=== PATIENT | female | born 1960 | race Caucasian/White ===

== ENCOUNTER → 2016-05-16 | Outpatient (CLI) | payer OTHER ==
[~2016-05-16] MED LIST: ADVIN10/60 INH; ADVIN25/60 INH; ADVIN50050 INH; ALBU1AER9 INH; AMLO-114 PO; ASCORBIC ACID PO; BIOT1CAP8 PO; CALC-354 PO; CYAN100020 PO; GFNSR600 PO; LEVO500T19 PO; MULT-506 PO; PARO10TA3 PO; PARO1TAB27 PO; PRD20 PO; VITACAP26 PO; VITAMIN B12 PO; VITAMIN D PO; VNTHFA/IN INH; ZNTT/150 PO
[2016-05-16 09:07] LABS: ALT/SGPT 29 U/L (12-78); BLOOD UREA NITROGEN 15 mg/dl (7-18); BUN/CREATININE RATIO 24.1 (10-20); CALCIUM 9.4 mg/dl (8.5-10.1); CARBON DIOXIDE 29 mmol/L (21-32); CHLORIDE 106 mmol/L (98-107); CREATININE 0.63 mg/dl (0.60-1.20); GLUCOSE 79 mg/dl (70-99); POTASSIUM 3.8 mmol/L (3.5-5.1); SODIUM 144 mmol/L (136-145)
[2016-05-16 09:10] LABS: ALKALINE PHOSPHATASE 135 U/L (45-117); AST/SGOT 18 U/L (15-37)
[2016-05-19 21:32] LABS: ALK PHOS ISO-INTESTINE 0 % (1-24); ALK PHOS ISO-LIVER 65 % (25-69); ALK PHOS ISO-PLACENTAL 0 % (<=0); ALK PHOS MACROHEPATIC 0 % (<=0); ALP (ALK P'TASE) 103 U/L (33-130)
== END | disposition home or self-care (01) ==
LOC: C.LABBC 07:47
PROVIDERS: ATTEND Family Medicine
DX: R79.9 Abnormal finding of blood chemistry, unspecified (principal)

== ENCOUNTER 2016-06-19 15:06 | Inpatient (IN) | payer OTHER ==
[~2016-06-19] VITALS: Ht 147.3 cm; Wt 103.8 kg
[~2016-06-19 15:06] MED LIST changes: -ADVIN10/60 INH; -ADVIN25/60 INH; -CALC-354 PO; -CYAN100020 PO; -GFNSR600 PO; -LEVO500T19 PO; -PARO1TAB27 PO; -PRD20 PO; -VITACAP26 PO; -VNTHFA/IN INH
[2016-06-19] MEDS ORDERED: CYAN100020 PO (16:01)
[2016-06-19] MEDS ORDERED: VITACAP26 PO (16:01)
[2016-06-19] MEDS ORDERED: CALC-354 PO (16:01)
[2016-06-19] MEDS ORDERED: ADVIN25/60 INH (16:01)
[2016-06-19] MEDS ORDERED: ALBUT/IPRATROP 3MG/0.5MG NEB 3 ML VIAL INH STA (16:19)
--- NOTE | 2016-06-19 16:19 | EMERGENCY ROOM VISIT NOTE ---
History Report prepared by Dorie: Reina Narayanan Under the Supervision of: Dr. Gerardo Iqbal D.O. First contact with patient: 16:09 Chief Complaint: RESPIRATORY PROBLEMS Stated Complaint: OXYGEN LEVEL LOW, CHEST CONGESTION History of Present Illness The patient is a 55 year old female who presents to the Emergency Room with complaints of constant low oxygen levels beginning earlier today. The patient had an appointment with her PCP today and had an oxygen saturation level of 70% . She was referred to the ED for further testing. The patient has also been sick these past few days having flu like symptoms. Her symptoms include congestion, subjective fever, diaphoresis, cough with no sputum that causes chest pain. The patient denies swelling to her legs. Source of History: patient Onset: earlier today Position: other (global) Symptom Intensity: 70% Quality: other (low oxygen levels) Timing: constant Associated Symptoms: + chest pain, + cough, + diaphoresis, + fevers Review of Systems See HPI for pertinent positives & negatives. A total of 10 systems reviewed and were otherwise negative. Past Medical & Surgical Medical Problems: (1) Hypertension Family History Patient reports no known family medical history. Social History Smoking Status: Never Smoker Alcohol Use: none Marital Status: Housing Status: lives with family Occupation Status: employed Current/Historical Medications Scheduled Amlodipine (Norvasc), 10 MG PO QPM Biotin (Biotin), 1 MG PO QPM Calcium Carbonate-Cholecalcife (Caltrate 600+D), 1 TAB PO QPM Cyanocobalamin (Vitamin B12), Unknown Dose PO QPM Fluticasone Prop/Salmeterol (Advair Diskus 250/50 60 Dose), 1 PUFF INH BID Multivitamin (Multivitamin), 1 TAB PO QPM Paroxetine HCl (Paroxetine), 10 MG PO HS Ranitidine (Zantac), 150 MG PO QPM Vitamins C & E (Vitamin C), 1 CAP PO QPM Allergies Coded Allergies: NO KNOWN DRUG ALLERGIES (Verified Allergy, Mild, ., 06/19/16) Cat Dander (Verified Allergy, Unknown, itchy eyes,sneeze, 06/19/16) Physical Exam Vital Signs Date Time Temp Pulse Resp B/P Pulse Ox O2 Delivery O2 Flow Rate FiO2 06/19/16 19:05 91 20 141/103 88 Room Air 06/19/16 17:12 92 18 135/96 94 Nebulizer 6.0 2/24/17 17:12 94 Room Air 06/19/16 15:15 Nasal Cannula 2.0 06/19/16 15:12 86 Room Air 06/19/16 15:08 37.1 95 18 136/79 86 Room Air Physical Exam GENERAL: Patient is awake, alert, and in no acute distress. Patient is resting comfortably and showing no signs of anxiety EYES: The conjunctivae are clear. The pupils are round and reactive. EARS, NOSE, MOUTH AND THROAT: The nose is without any evidence of any deformity. Mucous membranes are moist tongue is midline NECK: The neck is nontender and supple. RESPIRATORY: Diminished breath sounds throughout with expiratory wheezing in the upper stein. Scattered rhonchi. CARDIOVASCULAR: Regular rate and rhythm noted there no murmurs rubs or gallops normal S1 normal S2 GASTROINTESTINAL: The abdomen is soft. Bowel sounds are present in all quadrants. Abdomen is nontender MUSCULOSKELETAL/EXTREMITIES: There is no evidence of gross deformity full range of motion is noted in the hips and shoulders SKIN: There is no obvious evidence of any rash. There are no petechiae, pallor or cyanosis noted. No calf tenderness. NEUROLOGIC: Patient is awake alert and oriented x3. Medical Decision & Procedures ER Provider Diagnostic Interpretation: Radiology results as stated below per my review and radiologist interpretation: CHEST ONE VIEW PORTABLE CLINICAL HISTORY: Sepsis HYPOXIA COMPARISON STUDY: May 29, 2015 FINDINGS: The cardiac and mediastinal contours are normal. There is no evidence of focal pulmonary consolidation. There is no evidence of failure. No pleural effusions are visualized.[ IMPRESSION: No active disease in the chest. Electronically signed by: Pepe More M.D. 06/19/2016 4:41 PM Dictated Date/Time: 06/19/2016 4:[address] ANGIOGRAPHY OF THE CHEST, PULMONARY EMBOLUS PROTOCOL CLINICAL HISTORY: Hypoxia. Chest congestion. COMPARISON STUDY: Chest radiograph May 29, 2015 and June 19, 2016. TECHNIQUE: Following IV administration of 91 mL of Optiray-320, helical axial images of the chest were obtained utilizing the pulmonary embolus protocol. Maximal intensity projections and sagittal and coronal reformats were viewed on an independent 3D workstation. IV contrast was administered without complication. CT DOSE: 695.84 mGy.cm FINDINGS: No pulmonary emboli are identified. There is mild dilatation of the ascending aorta which measures 4.2 cm at the level the main pulmonary artery. There is no thoracic aortic dissection. The heart is at the upper limits of normal. There are no enlarged thoracic lymph nodes. Central airways are patent with exception of occlusion of several segmental bronchi within the right middle lobe with volume loss. This could reflect mucus or debris. There is no central obstructing mass. There is partial right middle lobe atelectasis. There is mosaic attenuation within the lungs. A few small nodules measure up to 4 mm. These are likely benign. The bony thorax is unremarkable. 2.5 cm lesion within the spleen has increased in size since exam of August 15, 2014 but measures water attenuation and is statistically benign. The gallbladder is surgically absent. IMPRESSION: 1. No pulmonary emboli identified. 2. Mosaic attenuation within the lungs with mild groundglass opacities which favor air trapping. 3. Mild dilatation of the ascending aorta which measures 4.2 cm. No thoracic aortic dissection. 3. Partial right middle lobe atelectasis with suspected mucous within right middle lobe segmental bronchi. No central obstructing mass. A follow-up chest CT in 6 months is recommended. Electronically signed by: Yonatan Armenta M.D. 06/19/2016 7:03 PM Dictated Date/Time: 06/19/2016 6:50 PM Laboratory Results 06/19/16 16:46 Red Blood Count 5.16, Mean Corpuscular Volume 85.7, Mean Corpuscular Hemoglobin 28.1, Mean Corpuscular Hemoglobin Concent 32.8, Mean Platelet Volume 9.3, Neutrophils (%) (Auto) 62.3, Lymphocytes (%) (Auto) 28.2, Monocytes (%) (Auto) 7.6, Eosinophils (%) (Auto) 1.2, Basophils (%) (Auto) 0.5, Neutrophils # (Auto) 4.05, Lymphocytes # (Auto) 1.83, Monocytes # (Auto) 0.49, Eosinophils # (Auto) 0.08, Basophils # (Auto) 0.03 06/19/16 16:46 Test 06/19/16 16:40 06/19/16 16:46 06/19/16 16:54 06/19/16 17:10 Influenza Type A (RT-PCR) Neg for Influ A (NEG) Influenza Type A Antigen Neg for Influ A (NEG) Influenza Type B Antigen Neg for Influ B (NEG) Influenza Type B (RT-PCR) Neg for Influ B (NEG) White Blood Count 6.49 K/uL (4.8-10.8) Red Blood Count 5.16 M/uL (4.2-5.4) Hemoglobin 14.5 g/dL (12.0-16.0) Hematocrit 44.2 % (37-47) Mean Corpuscular Volume 85.7 fL (80-100) Mean Corpuscular Hemoglobin 28.1 pg (25-34) Mean Corpuscular Hemoglobin Concent 32.8 g/dl (32-36) Platelet Count 257 K/uL (130-400) Mean Platelet Volume 9.3 fL (7.4-10.4) Neutrophils (%) (Auto) 62.3 % Lymphocytes (%) (Auto) 28.2 % Monocytes (%) (Auto) 7.6 % Eosinophils (%) (Auto) 1.2 % Basophils (%) (Auto) 0.5 % Neutrophils # (Auto) 4.05 K/uL (1.4-6.5) Lymphocytes # (Auto) 1.83 K/uL (1.2-3.4) Monocytes # (Auto) 0.49 K/uL (0.11-0.59) Eosinophils # (Auto) 0.08 K/uL (0-0.5) Basophils # (Auto) 0.03 K/uL (0-0.2) RDW Standard Deviation 46.9 fL (36.4-46.3) RDW Coefficient of Variation 14.8 % (11.5-14.5) Immature Granulocyte % (Auto) 0.2 % Immature Granulocyte # (Auto) 0.01 K/uL (0.00-0.02) Prothrombin Time 10.7 SECONDS (9.0-12.0) Prothromb Time International Ratio 1.0 (0.9-1.1) Activated Partial Thromboplast Time 27.1 SECONDS (21.0-31.0) Partial Thromboplastin Ratio 1.0 Venous Blood pH 7.41 (7.36-7.41) Venous Blood Partial Pressure CO2 53 mmHg (38.0-50.0) Venous Blood Partial Pressure O2 30 mmHg Venous Blood HCO3 33 mmol/L Venous Blood Oxygen Saturation 61.3 % Venous Blood Base Excess 6.3 mmol/L Anion Gap 7.0 mmol/L (3-11) Est Creatinine Clear Calc Drug Dose 96.8 ml/min Estimated GFR () 113.1 Estimated GFR (Non- 97.6 BUN/Creatinine Ratio 19.7 (10-20) Calcium Level 9.4 mg/dl (8.5-10.1) Phosphorus Level 3.0 mg/dl (2.5-4.9) Magnesium Level 2.2 mg/dl (1.8-2.4) Total Bilirubin 0.3 mg/dl (0.2-1) Aspartate Amino Transf (AST/SGOT) 22 U/L (15-37) Alanine Aminotransferase (ALT/SGPT) 30 U/L (12-78) Alkaline Phosphatase 136 U/L (45-117) Total Creatine Kinase 65 U/L (26-192) Creatine Kinase MB 1.4 ng/ml (0.5-3.6) Creatine Kinase MB Ratio 2.2 (0-3.0) Troponin I < 0.015 ng/ml (0-0.045) C-Reactive Protein 1.95 mg/dl (0-0.29) Pro-B-Type Natriuretic Peptide 63 pg/ml (0-900) Total Protein 7.6 gm/dl (6.4-8.2) Albumin 3.6 gm/dl (3.4-5.0) Globulin 4.0 gm/dl (2.5-4.0) Albumin/Globulin Ratio 0.9 (0.9-2) Lipase 169 U/L (73-393) Bedside Lactic Acid Venous 0.78 mmol/L (0.90-1.70) Urine Color DK YELLOW Urine Appearance CLOUDY (CLEAR) Urine pH 5.5 (4.5-7.5) Urine Specific Sneads 1.022 (1.000-1.030) Urine Protein TRACE (NEG) Urine Glucose (UA) NEG (NEG) Urine Ketones TRACE (NEG) Urine Occult Blood 3+ (NEG) Urine Nitrite NEG (NEG) Urine Bilirubin NEG (NEG) Urine Urobilinogen NEG (NEG) Urine Leukocyte Esterase SMALL (NEG) Urine WBC (Auto) 5-10 /hpf (0-5) Urine RBC (Auto) 10-30 /hpf (0-4) Urine Hyaline Casts (Auto) 10-30 /lpf (0-5) Urine Epithelial Cells (Auto) >30 /lpf (0-5) Urine Bacteria (Auto) NEG (NEG) Urine Renal Epithelial Cells 0-5 /lpf (0-5) Urine Yeast (Auto) PRESENT (NONE PRSENT) Laboratory results per my review. Medications Administered Medications (Trade) Dose Ordered Sig/Jason Route Start Time Stop Time Status Last Admin Dose Admin Albuterol/ Ipratropium (Duoneb) 3 ml NOW STAT INH 06/19/16 16:19 06/19/16 16:20 DC 06/19/16 17:19 3 ML Levofloxacin (Levaquin / D5W) 750 mg NOW STAT IV 06/19/16 19:13 06/19/16 19:15 DC 06/19/16 20:17 750 MG Methylprednisolone Sodium Succinate (Solu-Medrol IV) 125 mg NOW STAT IV 06/19/16 19:13 06/19/16 19:15 DC 06/19/16 20:17 125 MG ECG Indication: other (low oxygen levels) Rate (beats per minute): 80 Rhythm: normal sinus Findings: nonspecific-ST abn, no ectopy ED Course 161: The patient was evaluated in room C5. A complete history and physical examination were performed. 1618: Duoneb 3 ml INH. 1912: Solu-Medrol IV 125 mg IV, Levaquin/ D5W 750 mg IV. 1919: I discussed the patient's case with Dr. Oneida Stapleton [facility]. The patient will be evaluated for further management. Medical Decision Differential diagnosis: Etiologies such as infections, reactive airway disease, pneumonia, pneumothorax , COPD, CHF, cardiac ischemia, pulmonary embolism, musculoskeletal, gastrointestinal, as well as others were entertained. Nursing notes reviewed. The patient is a 55-year-old female who presented to the emergency department for an evaluation of shortness of breath. The patient is been having trouble with breathing and cough. She was found have significant hypoxia by outpatient primary care physician. She was sent to the emergency apartment for further evaluation. Initially I thought the patient's condition was consistent with an infectious process however her chest x-ray did not show any acute abnormality. Because of the degree of hypoxia CT the chest was ordered to rule out pulmonary embolism. I discussed patient's laboratory and radiographic studies with her. She was treated with DuoNeb therapy IV antibiotics as well as IV steroids. She was also placed on supplemental oxygen and was found have an acceptable oxygen saturation. She still had significant dyspnea on exertion. I discussed her case with the on-call [facility] hospitalist group. They've agreed to evaluate the patient in the emergency department for further management and disposition. I discussed the patient's laboratory and radiographic studies with her. Consults Time Called: 1917 Consulting Physician: Dr. Oneida NIETO Returned Call: 1919 I discussed the patient's case with Dr. Oneida NIETO. The patient will be evaluated for further management. Impression Primary Impression: Acute bronchitis Additional Impressions: Hypoxia Shortness of breath Scribe Attestation The scribe's documentation has been prepared under my direction and personally reviewed by me in its entirety. I confirm that the note above accurately reflects all work, treatment, procedures, and medical decision making performed by me. Departure Information Dispostion Being Evaluated By Hospitalist Referrals Estiven Hsieh, D.O.Int.Med. (PCP) Problem Qualifiers Primary Impression: Acute bronchitis Bronchitis organism: unspecified organism Qualified Codes: J20.9 - Acute bronchitis, unspecified
--- NOTE | 2016-06-19 16:43 | DIAGNOSTIC IMAGING REPORT ---
CHEST ONE VIEW PORTABLE CLINICAL HISTORY: Sepsis HYPOXIA COMPARISON STUDY: May 29, 2015 FINDINGS: The cardiac and mediastinal contours are normal. There is no evidence of focal pulmonary consolidation. There is no evidence of failure. No pleural effusions are visualized.[ IMPRESSION: No active disease in the chest. Electronically signed by: Pepe More M.D. 06/19/2016 4:41 PM Dictated Date/Time: 06/19/2016 4:41 PM
[2016-06-19 16:59] LABS: VEN BLD GAS O2 SATURATION 61.3 %; VEN BLOOD GAS BASE EXCESS 6.3 mmol/L
[2016-06-19 17:01] LABS: BASO % 0.5 %; BASO ABS # 0.03 K/uL (0-0.2); COMPLETE YES; EOS % 1.2 %; HEMATOCRIT 44.2 % (37-47); IG% 0.2 %; LYMPH % 28.2 %; LYMPH ABS # 1.83 K/uL (1.2-3.4); MEAN CELL VOLUME 85.7 fL (80-100); MEAN CORPUSCULAR HEMOGLOBIN 28.1 pg (25-34); MEAN CORPUSCULAR HGB CONC 32.8 g/dl (32-36); MEAN PLATELET VOLUME 9.3 fL (7.4-10.4); MONO % 7.6 %; NEUT % 62.3 %; PLATELET COUNT 257 K/uL (130-400); RED BLOOD COUNT 5.16 M/uL (4.2-5.4); WHITE BLOOD COUNT 6.49 K/uL (4.8-10.8)
[2016-06-19 17:09] LABS: PROTHROMBIN TIME (PATIENT) 10.7 SECONDS (9.0-12.0)
[2016-06-19 17:22] LABS: ALT/SGPT 30 U/L (12-78); BLOOD UREA NITROGEN 13 mg/dl (7-18); BUN/CREATININE RATIO 19.7 (10-20); C-REACTIVE PROTEIN 1.95 mg/dl (0-0.29); CALCIUM 9.4 mg/dl (8.5-10.1); CARBON DIOXIDE 30 mmol/L (21-32); CHLORIDE 101 mmol/L (98-107); CREATININE 0.67 mg/dl (0.60-1.20); GLUCOSE 85 mg/dl (70-99); MAGNESIUM 2.2 mg/dl (1.8-2.4); POTASSIUM 3.7 mmol/L (3.5-5.1); SODIUM 138 mmol/L (136-145)
[2016-06-19 17:25] LABS: ALB/GLOB RATIO 0.9 (0.9-2); ALKALINE PHOSPHATASE 136 U/L (45-117); AST/SGOT 22 U/L (15-37); CKMB/CK RATIO 2.2 (0-3.0)
[2016-06-19 17:29] LABS: URINE APPEARANCE CLOUDY (CLEAR); URINE BILIRUBIN NEG (NEG); URINE COLOR DK YELLOW; URINE EPITHELIAL CELL AUTO >30 /lpf (0-5); URINE NITRITE NEG (NEG); URINE PH 5.5 (4.5-7.5); URINE SPECIFIC GRAVITY 1.022 (1.000-1.030); UROBILINOGEN NEG (NEG); ZZUR CULT IF INDIC CLEAN CATCH YES
[2016-06-19 17:37] LABS: MANUAL MICROSCOPIC REQUIRED? NO; REVIEW REQ? YES
[2016-06-19] MEDS ORDERED: OPTIRAY 320 IV PRN (17:45)
[2016-06-19 18:56] LABS: INFLUENZA A PCR Neg for Influ A (NEG); INFLUENZA B PCR Neg for Influ B (NEG)
--- NOTE | 2016-06-19 19:04 | DIAGNOSTIC IMAGING REPORT ---
CT ANGIOGRAPHY OF THE CHEST, PULMONARY EMBOLUS PROTOCOL CLINICAL HISTORY: Hypoxia. Chest congestion. COMPARISON STUDY: Chest radiograph May 29, 2015 and June 19, 2016. TECHNIQUE: Following IV administration of 91 mL of Optiray-320, helical axial images of the chest were obtained utilizing the pulmonary embolus protocol. Maximal intensity projections and sagittal and coronal reformats were viewed on an independent 3D workstation. IV contrast was administered without complication. CT DOSE: 695.84 mGy.cm FINDINGS: No pulmonary emboli are identified. There is mild dilatation of the ascending aorta which measures 4.2 cm at the level the main pulmonary artery. There is no thoracic aortic dissection. The heart is at the upper limits of normal. There are no enlarged thoracic lymph nodes. Central airways are patent with exception of occlusion of several segmental bronchi within the right middle lobe with volume loss. This could reflect mucus or debris. There is no central obstructing mass. There is partial right middle lobe atelectasis. There is mosaic attenuation within the lungs. A few small nodules measure up to 4 mm. These are likely benign. The bony thorax is unremarkable. 2.5 cm lesion within the spleen has increased in size since exam of August 15, 2014 but measures water attenuation and is statistically benign. The gallbladder is surgically absent. IMPRESSION: 1. No pulmonary emboli identified. 2. Mosaic attenuation within the lungs with mild groundglass opacities which favor air trapping. 3. Mild dilatation of the ascending aorta which measures 4.2 cm. No thoracic aortic dissection. 3. Partial right middle lobe atelectasis with suspected mucous within right middle lobe segmental bronchi. No central obstructing mass. A follow-up chest CT in 6 months is recommended. Electronically signed by: Yonatan Armenta M.D. 06/19/2016 7:03 PM Dictated Date/Time: 06/19/2016 6:50 PM
[2016-06-19] MEDS ORDERED: METHYLPREDNISOLONE 125 MG VIAL IV STA (19:13)
[2016-06-19] MEDS ORDERED: LEVAQUIN 750MG / 150ML D5W IV STA (19:13)
[2016-06-19] MEDS ORDERED: PROMETHAZINE HCL INJ 12.5 MG in SODIUM CHLORIDE 0.9% 50ML 50 ML IV PRN (19:45)
[2016-06-19] MEDS ORDERED: ZOLPIDEM TARTRATE 5 MG TAB PO PRN ×2 (19:45)
[2016-06-19] MEDS ORDERED: ACETAMINOPHEN 325 MG TAB PO PRN ×2 (19:45)
[2016-06-19] MEDS ORDERED: LORAZEPAM 2 MG/ML 1 ML VIAL IV PRN (19:45)
[2016-06-19] MEDS ORDERED: MAGNESIUM HYDROXIDE SUSP 30 ML UDC PO PRN (19:45)
[2016-06-19] MEDS ORDERED: ALUMINUM/MAGNESIUM/SIMETH (MAALOX MAX) 30 ML UDC PO PRN (19:45)
[2016-06-19] MEDS ORDERED: ONDANSETRON INJ 2 MG/ML 2 ML VIAL IV PRN (19:45)
[2016-06-19] MEDS ORDERED: MoRPHine SULFATE 2 MG/ML CARP IV PRN (19:45)
[2016-06-19] MEDS ORDERED: DiphenhydrAMINE HCL 50 MG/ML VIAL IV PRN (19:45)
[2016-06-19 20:38] VITALS: BP 148/87; PULSE 107; TEMP 36.6; O2SAT 92; Ht 147.3 cm; Wt 103.8 kg
[2016-06-19] MEDS: LEVALBUTEROL 1.25MG/0.5ML NEB INH SCH (21:00)
[2016-06-19] MEDS ORDERED: IPRATROPIUM BROMIDE NEB SOLN 0.02% 2.5 ML VIAL INH PRN (21:00)
[2016-06-19] MEDS ORDERED: LEVALBUTEROL/IPRATROPIUM NEB INH SCH (21:00)
[2016-06-19] MEDS ORDERED: NON-FORMULARY MEDICATION (Biotin 1 MG) PO SCH (21:00)
[2016-06-19] MEDS ORDERED: LEVALBUTEROL 1.25MG/0.5ML NEB INH PRN (21:00)
[2016-06-19] MEDS: IPRATROPIUM BROMIDE NEB SOLN 0.02% 2.5 ML VIAL INH SCH (21:00)
[2016-06-19] MEDS: CALCIUM 600MG + VIT D 400 IU TAB PO SCH (21:48)
[2016-06-19] MEDS: AMLODIPINE BESYLATE 5 MG TAB PO SCH (21:48)
[2016-06-19] MEDS: MULTIVITAMIN TAB PO SCH (21:48)
[2016-06-19] MEDS: RANITIDINE HCL 150 MG TAB PO SCH (21:48)
[2016-06-19] MEDS: GUAIFENESIN 600 MG TABCR PO SCH (21:49)
[2016-06-19] MEDS: CEFTRIAXONE SOD INJ 1 GM in DEXTROSE 5% ADD-VANTAGE 50ML 50 ML IV SCH (22:24)
[2016-06-20] VITALS (11 sets, daily range): BP systolic 111–152; BP diastolic 69–82; PULSE 76–95; TEMP 36.6–36.9; O2SAT 90–95
[2016-06-20] MEDS: METHYLPREDNISOLONE IV 60 MG in SYRINGE 0 ML IV SCH ×4 (01:49→20:26)
[2016-06-20] MEDS: LEVALBUTEROL 1.25MG/0.5ML NEB INH SCH ×4 (01:55→19:22)
[2016-06-20] MEDS: IPRATROPIUM BROMIDE NEB SOLN 0.02% 2.5 ML VIAL INH SCH ×4 (01:55→19:22)
--- NOTE | 2016-06-20 02:18 | History and Physical ---
History & Physical Date & Time of Service: Jun 20, 2016 at 02:12 Chief Complaint: Acute Bronchitis, Hypoxia Primary Care Physician: Estiven Hsieh D.O.Int.Med. History of Present Illness Source: patient The patient is a 55-year-old female who presents emergency department after being referred from her PCPs office due to low oxygen saturation in the low 70s percent range. She has had some shortness of breath and dyspnea on exertion, and feels lung congestion but is not able to bring up any mucus over the past few days. Past Medical/Surgical History Medical Problems: (1) Hypertension Status: Chronic Family History Patient reports no known family medical history. Social History Smoking Status: Never Smoker Smokeless Tobacco Use: No Alcohol Use: none Drug Use: none Marital Status: Housing status: lives with family Occupational Status: employed Multi-Drug Resistant Organisms History of MDRO: No Allergies Coded Allergies: NO KNOWN DRUG ALLERGIES (Verified Allergy, Mild, ., 06/19/16) Cat Dander (Verified Allergy, Unknown, itchy eyes,sneeze, 06/19/16) Home Medications Scheduled Amlodipine (Norvasc), 10 MG PO QPM Biotin (Biotin), 1 MG PO QPM Calcium Carbonate-Cholecalcife (Caltrate 600+D), 1 TAB PO QPM Cyanocobalamin (Vitamin B12), Unknown Dose PO QPM Fluticasone Prop/Salmeterol (Advair Diskus 250/50 60 Dose), 1 PUFF INH BID Multivitamin (Multivitamin), 1 TAB PO QPM Paroxetine HCl (Paroxetine), 10 MG PO HS Ranitidine (Zantac), 150 MG PO QPM Vitamins C & E (Vitamin C), 1 CAP PO QPM Review of Systems The patient denies palpitations, lower extremity swelling, vision change, hearing change, sore throat, fevers, chills, sweats, weight change, nausea, vomiting, abdominal pain, pelvic pain, blood in urine or stool, dysuria, urinary frequency or urgency, lightheadedness, dizziness, headache, memory loss , rash, abnormal bruising or bleeding, imbalance, focal or generalized weakness , numbness or tingling in arms or legs, back or neck pain, night sweats. The review of systems is otherwise negative other than for that already noted above, and at least 10 systems have been reviewed. Physical Exam Vital Signs Date Time Temp Pulse Resp B/P Pulse Ox O2 Delivery O2 Flow Rate FiO2 06/20/16 01:55 83 18 95 Nasal Cannula 4.0 06/20/16 00:03 36.8 80 18 115/75 93 Nasal Cannula 3.5 06/19/16 20:38 36.6 107 20 148/87 92 Partial Rebreather 4.0 06/19/16 20:25 95 20 138/80 91 06/19/16 19:05 91 20 141/103 88 Room Air 06/19/16 17:12 92 18 135/96 94 Nebulizer 6.0 06/19/16 17:12 94 Room Air 06/19/16 15:15 Nasal Cannula 2.0 06/19/16 15:12 86 Room Air 06/19/16 15:08 37.1 95 18 136/79 86 Room Air The patient is awake, well-developed and adequately nourished, alert and oriented 3, normocephalic and atraumatic, lying in bed and in no acute distress. HEENT--PERRL, EOMI, mucous membranes and oropharynx dry. Neck--supple, no JVD or bruits, thyroid normal, trachea midline, no adenopathy. Heart--normal S1 and S2, no extra beats, no murmurs, rubs or gallops. Lungs--decreased breath sounds throughout, no respiratory distress, no accessory muscle use. Abdomen--normal bowel sounds and soft, nontender and nondistended, no hernias or masses, no organomegaly. Extremities--no cyanosis, clubbing or edema. There are good distal pulses b/l. Dermatologic--normal skin turgor, normal color, warm and dry, no abnormal lymph nodes, no rash. Neurologic--cranial nerves II through XII grossly intact, motor and sensory examination normal. Rheumatologic--normal range of motion, nontender, muscles and joints. Psychiatric--normal affect. Diagnostics Laboratory Results Results Past 24 Hours Test 06/19/16 16:40 06/19/16 16:46 06/19/16 16:54 06/19/16 17:10 Range/Units Influenza Type A (RT-PCR) Neg for Influ A NEG Influenza Type A Antigen Neg for Influ A NEG Influenza Type B Antigen Neg for Influ B NEG Influenza Type B (RT-PCR) Neg for Influ B NEG White Blood Count 6.49 4.8-10.8 K/uL Red Blood Count 5.16 4.2-5.4 M/uL Hemoglobin 14.5 12.0-16.0 g/dL Hematocrit 44.2 37-47 % Mean Corpuscular Volume 85.7 80-100 fL Mean Corpuscular Hemoglobin 28.1 25-34 pg Mean Corpuscular Hemoglobin Concent 32.8 32-36 g/dl Platelet Count 257 130-400 K/uL Mean Platelet Volume 9.3 7.4-10.4 fL Neutrophils (%) (Auto) 62.3 % Lymphocytes (%) (Auto) 28.2 % Monocytes (%) (Auto) 7.6 % Eosinophils (%) (Auto) 1.2 % Basophils (%) (Auto) 0.5 % Neutrophils # (Auto) 4.05 1.4-6.5 K/uL Lymphocytes # (Auto) 1.83 1.2-3.4 K/uL Monocytes # (Auto) 0.49 0.11-0.59 K/uL Eosinophils # (Auto) 0.08 0-0.5 K/uL Basophils # (Auto) 0.03 0-0.2 K/uL RDW Standard Deviation 46.9 36.4-46.3 fL RDW Coefficient of Variation 14.8 11.5-14.5 % Immature Granulocyte % (Auto) 0.2 % Immature Granulocyte # (Auto) 0.01 0.00-0.02 K/uL Prothrombin Time 10.7 9.0-12.0 SECONDS Prothromb Time International Ratio 1.0 0.9-1.1 Activated Partial Thromboplast Time 27.1 21.0-31.0 SECONDS Partial Thromboplastin Ratio 1.0 Venous Blood pH 7.41 7.36-7.41 Venous Blood Partial Pressure CO2 53 38.0-50.0 mmHg Venous Blood Partial Pressure O2 30 mmHg Venous Blood HCO3 33 mmol/L Venous Blood Oxygen Saturation 61.3 % Venous Blood Base Excess 6.3 mmol/L Sodium Level 138 136-145 mmol/L Potassium Level 3.7 3.5-5.1 mmol/L Chloride Level 101 98-107 mmol/L Carbon Dioxide Level 30 21-32 mmol/L Anion Gap 7.0 3-11 mmol/L Blood Urea Nitrogen 13 7-18 mg/dl Creatinine 0.67 0.60-1.20 mg/dl Est Creatinine Clear Calc Drug Dose 96.8 ml/min Estimated GFR () 113.1 Estimated GFR (Non- 97.6 BUN/Creatinine Ratio 19.7 10-20 Random Glucose 85 70-99 mg/dl Calcium Level 9.4 8.5-10.1 mg/dl Phosphorus Level 3.0 2.5-4.9 mg/dl Magnesium Level 2.2 1.8-2.4 mg/dl Total Bilirubin 0.3 0.2-1 mg/dl Aspartate Amino Transf (AST/SGOT) 22 15-37 U/L Alanine Aminotransferase (ALT/SGPT) 30 12-78 U/L Alkaline Phosphatase 136 45-117 U/L Total Creatine Kinase 65 26-192 U/L Creatine Kinase MB 1.4 0.5-3.6 ng/ml Creatine Kinase MB Ratio 2.2 0-3.0 Troponin I < 0.015 0-0.045 ng/ml C-Reactive Protein 1.95 0-0.29 mg/dl Pro-B-Type Natriuretic Peptide 63 0-900 pg/ml Total Protein 7.6 6.4-8.2 gm/dl Albumin 3.6 3.4-5.0 gm/dl Globulin 4.0 2.5-4.0 gm/dl Albumin/Globulin Ratio 0.9 0.9-2 Lipase 169 73-393 U/L Bedside Lactic Acid Venous 0.78 0.90-1.70 mmol/L Urine Color DK YELLOW Urine Appearance CLOUDY CLEAR Urine pH 5.5 4.5-7.5 Urine Specific [place] 1.022 1.000-1.030 Urine Protein TRACE NEG Urine Glucose (UA) NEG NEG Urine Ketones TRACE NEG Urine Occult Blood 3+ NEG Urine Nitrite NEG NEG Urine Bilirubin NEG NEG Urine Urobilinogen NEG NEG Urine Leukocyte Esterase SMALL NEG Urine WBC (Auto) 5-10 0-5 /hpf Urine RBC (Auto) 10-30 0-4 /hpf Urine Hyaline Casts (Auto) 10-30 0-5 /lpf Urine Epithelial Cells (Auto) >30 0-5 /lpf Urine Bacteria (Auto) NEG NEG Urine Renal Epithelial Cells 0-5 0-5 /lpf Urine Yeast (Auto) PRESENT NONE PRSENT Microbiology Results 06/19/16 Blood Culture, Received Pending 06/19/16 Blood Culture, Received Pending 06/19/16 Urine Culture, Received Pending Diagnostic Radiology Patient Name: AIYANA MENDEZ Unit Number: [id number] Dictated: 06/19/161640 Transcribed: 06/19/161640 ARG Printed Date/Time: [~ rep prt dt]/[~ rep prt tm] [~ rep ct labl] - [~ rep ct ivnm] [facility] Radiology Department [place] [id number] Dictated: 06/19/161640 Transcribed: 06/19/161640 ARG Printed Date/Time: [~ rep prt dt]/[~ rep prt tm] [~ rep ct labl] - [~ rep ct ivnm] DIAGNOSTIC IMAGING [~ rep ct add3]] CHEST ONE VIEW PORTABLE CLINICAL HISTORY: Sepsis HYPOXIA COMPARISON STUDY: May 29, 2015 FINDINGS: The cardiac and mediastinal contours are normal. There is no evidence of focal pulmonary consolidation. There is no evidence of failure. No pleural effusions are visualized.[ IMPRESSION: No active disease in the chest. Electronically signed by: Pepe More M.D. 06/19/2016 4:41 PM Dictated Date/Time: 06/19/2016 4:41 PM The status of this report is Signed. Draft = Not yet reviewed or approved by Radiologist. Signed = Reviewed and approved by Radiologist. <AttendingPhy></AttendingPhy> <FamilyPhy>Estiven Hsieh D.O.Int.Med.</ FamilyPhy> <PrimaryPhy>Estiven Hsieh D.O.Int.Med.</PrimaryPhy> <UnitNumber> [id number]</UnitNumber> <VisitNumber>[id number]</VisitNumber> <PatientName> AIYANA MENDEZ</PatientName> <DateOfBirth>1960</DateOfBirth> <Location> [facility]</Location> <ServiceDate>06/19/16</ServiceDate> <MNE>ESINDI</MNE> < OrderingPhy>Gerardo Iqbal D.O.</OrderingPhy> <OrderingPhyMNE>f rep ord dr mne</OrderingPhyMNE> <DictatingPhyMNE>f rep dict dr barron</DictatingPhyMNE> < CCListMNE>f rep ct mne</CCListMNE> <AdmittingPhyMNE>f pt admit dr barron</ AdmittingPhyMNE> <AttendingPhyMNE>f pt attend dr barron</AttendingPhyMNE> <ConsultingPhyMNE>f pt consult dr barron</ConsultingPhyMNE> <FamilyPhyMNE>f pt fam dr barron</FamilyPhyMNE> <OtherPhyMNE>f pt other dr braron</OtherPhyMNE> < PrimaryPhyMNE>f pt prim care dr barron</PrimaryPhyMNE> <ReferringPhyMNE>f pt referring dr barron</ReferringPhyMNE> Patient Name: AIYANA MENDEZ Unit Number: [id number] Dictated: 06/19/161849 Transcribed: 06/19/161849 JA Printed Date/Time: [~ rep prt dt]/[~ rep prt tm] [~ rep ct labl] - [~ rep ct ivnm] [facility] Radiology Department [place] [id number] Dictated: 06/19/161849 Transcribed: 06/19/161849 JA Printed Date/Time: [~ rep prt dt]/[~ rep prt tm] [~ rep ct labl] - [~ rep ct ivnm] [~ rep ct add3]] CT ANGIOGRAPHY OF THE CHEST, PULMONARY EMBOLUS PROTOCOL CLINICAL HISTORY: Hypoxia. Chest congestion. COMPARISON STUDY: Chest radiograph May 29, 2015 and June 19, 2016. TECHNIQUE: Following IV administration of 91 mL of Optiray-320, helical axial images of the chest were obtained utilizing the pulmonary embolus protocol. Maximal intensity projections and sagittal and coronal reformats were viewed on an independent 3D workstation. IV contrast was administered without complication. CT DOSE: 695.84 mGy.cm FINDINGS: No pulmonary emboli are identified. There is mild dilatation of the ascending aorta which measures 4.2 cm at the level the main pulmonary artery. There is no thoracic aortic dissection. The heart is at the upper limits of normal. There are no enlarged thoracic lymph nodes. Central airways are patent with exception of occlusion of several segmental bronchi within the right middle lobe with volume loss. This could reflect mucus or debris. There is no central obstructing mass. There is partial right middle lobe atelectasis. There is mosaic attenuation within the lungs. A few small nodules measure up to 4 mm. These are likely benign. The bony thorax is unremarkable. 2.5 cm lesion within the spleen has increased in size since exam of August 15, 2014 but measures water attenuation and is statistically benign. The gallbladder is surgically absent. IMPRESSION: 1. No pulmonary emboli identified. 2. Mosaic attenuation within the lungs with mild groundglass opacities which favor air trapping. 3. Mild dilatation of the ascending aorta which measures 4.2 cm. No thoracic aortic dissection. 3. Partial right middle lobe atelectasis with suspected mucous within right middle lobe segmental bronchi. No central obstructing mass. A follow-up chest CT in 6 months is recommended. Electronically signed by: Yonatan Armenta M.D. 06/19/2016 7:03 PM Dictated Date/Time: 06/19/2016 6:50 PM The status of this report is Signed. Draft = Not yet reviewed or approved by Radiologist. Signed = Reviewed and approved by Radiologist. <AttendingPhy></AttendingPhy> <FamilyPhy>Estiven Hsieh D.O.Int.Med.</ FamilyPhy> <PrimaryPhy>Estiven Hsieh D.O.Int.Med.</PrimaryPhy> <UnitNumber> [id number]</UnitNumber> <VisitNumber>[id number]</VisitNumber> <PatientName> AIYANA MENDEZ</PatientName> <DateOfBirth>1960</DateOfBirth> <Location> [facility]</Location> <ServiceDate>06/19/16</ServiceDate> <MNE>ESINDI</MNE> < OrderingPhy>Gerardo Iqbal D.O.</OrderingPhy> <OrderingPhyMNE>f rep ord dr barron</OrderingPhyMNE> <DictatingPhyMNE>f rep dict dr barron</DictatingPhyMNE> < CCListMNE>f rep ct roxie</CCListMNE> <AdmittingPhyMNE>f pt admit dr barron</ AdmittingPhyMNE> <AttendingPhyMNE>f pt attend dr barron</AttendingPhyMNE> <ConsultingPhyMNE>f pt consult dr barron</ConsultingPhyMNE> <FamilyPhyMNE>f pt fam dr barron</FamilyPhyMNE> <OtherPhyMNE>f pt other dr barron</OtherPhyMNE> < PrimaryPhyMNE>f pt prim care dr barron</PrimaryPhyMNE> <ReferringPhyMNE>f pt referring dr barron</ReferringPhyMNE> EKG EKG shows normal sinus rhythm at 80 bpm, there are no acute ST-T changes. Impression Assessment and Plan Asthmatic bronchitis causing hypoxia--the patient be admitted to the hospital. She'll be placed on ceftriaxone 1 g IV daily, levofloxacin 500 mg IV every 24 hours, guaifenesin extended release 600 mg by mouth twice a day, Solu-Medrol 60 mg IV every 6 hours, and Xopenex with Atrovent nebulizer to use every 6 hours while awake and every 2 hours when necessary. Hypertension--continue amlodipine 10 mg by mouth every afternoon. Depression--continue Paxil 10 mg by mouth at bedtime. GERD--continue ranitidine 150 mg by mouth every afternoon. Vitamin B12 deficiency--patient will get us the dosing for her daily regimen. Level of Care Telemetry Advanced Directives Existing Advance Directive: No Existing Living Will: No Existing Power of Tree Trimmer Helper: No VTE Prophylaxis VTE Risk Assessment Done? Y/N: Yes Risk Level: Moderate Given or contraindicated: SCD's Social Service Consult None Apply
[2016-06-20 07:43] LABS: BASO % 0.2 %; BASO ABS # 0.01 K/uL (0-0.2); COMPLETE YES; IG% 0.2 %; LYMPH % 20.7 %; MEAN CELL VOLUME 84.3 fL (80-100); MEAN CORPUSCULAR HEMOGLOBIN 27.4 pg (25-34); MEAN CORPUSCULAR HGB CONC 32.5 g/dl (32-36); MEAN PLATELET VOLUME 9.3 fL (7.4-10.4); MONO % 0.5 %; NEUT % 78.4 %; PLATELET COUNT 281 K/uL (130-400); RED BLOOD COUNT 5.22 M/uL (4.2-5.4); WHITE BLOOD COUNT 4.34 K/uL (4.8-10.8)
[2016-06-20] MEDS: PAROXETINE 20 MG TAB PO SCH (08:09)
[2016-06-20] MEDS: CYANOCOBALAMIN 500 MCG TAB (VIT B-12) PO SCH (08:10)
[2016-06-20] MEDS: GUAIFENESIN 600 MG TABCR PO SCH ×2 (08:10→20:28)
[2016-06-20 08:16] LABS: BUN/CREATININE RATIO 25.5 (10-20); CALCIUM 9.6 mg/dl (8.5-10.1); CREATININE 0.65 mg/dl (0.60-1.20); MAGNESIUM 2.2 mg/dl (1.8-2.4); POTASSIUM 3.6 mmol/L (3.5-5.1)
--- NOTE | 2016-06-20 13:18 | PROGRESS NOTE ---
DATE: 06/20/2016 DATE: 06/20/2016. PROBLEM LIST: Includes: 1. Asthmatic bronchitis. 2. Hypoxia. 3. History of asthma. 4. Hypertension. 5. Depression. 6. GERD. 7. Vitamin B12 deficiency. SUBJECTIVE: The patient reports that she is feeling much better today. She states that the coughing has pretty much stopped. She states that she is breathing easier. She feels that her lungs are easier as well. She has not really been out of bed to see if her dyspnea on exertion is significantly improved yet or not. She states that her lungs still feel a little bit congested but not as bad as they were when she came in. She is using oxygen now, she does not use oxygen at home typically. She does follow with Dr. Estiven Hsieh of pulmonology for her pulmonary care to follow her asthma. The patient reports that she is doing well otherwise. She has no other significant complaints at this time. No unusual headache or lightheadedness. No dizziness. No difficulty with her speech. No difficulty swallowing. She has not had any choking episodes that she is aware of. No chest pain, no palpitations, no chest pressure or heaviness. She has not had any fever or chills that she is aware of. She has not had any GI symptoms. She is not feeling nauseated. No difficulty swallowing. No indigestion or heartburn. She has not had any vomiting or diarrhea. She states that her bowels did move last night. She states that she is voiding well without difficulty. She is not having any difficulty with swelling in her extremities. No numbness, tingling or weakness in her extremities. OBJECTIVE: GENERAL: The patient is a 55-year-old white female in no acute distress. She is alert and oriented x3. Mood is good. Affect is good. VITAL SIGNS: Temp 36.6, pulse 80, respirations 16, blood pressure is 111/69, pulse ox is 95% on 3 liters. HEAD, EYES, EARS, NOSE, AND THROAT: Normocephalic, atraumatic. Pupils equal, round and reactive to light and accommodation. Extraocular movements are intact. [place] moist gingival and buccal mucosa. The patient does have somewhat of a smaller airway due to her oropharyngeal architecture. No erythema or edema. NECK: Short, thick, supple. No mass. No adenopathy. No bruit. No JVD, no thyromegaly, no tenderness to palpation. CHEST: The patient still has faint wheezing primarily on exhalation bilaterally. She has no accessory muscle use. CARDIOVASCULAR: Regular rate and rhythm. No murmurs, gallops or rubs. ABDOMEN: Bowel sounds are present. Abdomen soft, nontender. No guarding, rigidity or organomegaly. EXTREMITIES: No cyanosis or clubbing. No edema. Distal pulses are full and equal bilaterally. NEUROLOGIC: Cranial nerves II through XII are intact. No focal deficit noted. LABORATORY DATA: Shows a white count of 4.3, H\T\H 14.3/44.0, platelet count 281,000. Sodium 136, potassium 3.6, chloride 101, CO2 26, anion gap of 9.0, BUN 17, creatinine 0.65, random glucose 137, calcium 9.6, magnesium 2.2. Urine done last evening shows 3+ occult blood, trace ketones, trace protein, 5-10 white blood cells per high power field, 10-30 red blood cells per high power field, negative for urine bacteria. Urine yeast is present. Leukocyte esterase is small. Influenza A and B are negative. Blood cultures pending. Urine culture is pending. EKG done 06/20/2016 at 7:00 a.m. showed normal sinus rhythm. IMPRESSION: 1. This is a 55-year-old female with history of asthma who presented with hypoxia with O2 sats in the 70s from her PCP office. Looks like she has asthmatic bronchitis. She does have some changes on CAT scan with possible mucous plugging and mucus congestion, primarily on the right. At this point, may need to question silent aspiration, although patient declines any known problems with swallowing at this point. Would recommend that we continue antibiotic coverage with ceftriaxone and levofloxacin. Continue guaifenesin twice daily. Actually, I would recommend to continue Solu-Medrol at 60 mg every 6 hours at least through until tomorrow. The patient is improving, but there is still some wheezing there betting it would be beneficial for her to continue this. I am concerned that if we try and decrease in too quickly her symptoms will worsen. At this time, I do feel that she is stable for transfer to regular medical surgical floor. 2. Hypertension. The patient is on amlodipine. Blood pressures are doing well. 3. Depression. She is doing well with her Paxil. 4. Gastroesophageal reflux disease. She is asymptomatic currently and is to continue her ranitidine by mouth. 5. Question if there may be some nocturnal desaturation. The patient has appropriate body habitus and oropharyngeal architecture for possible sleep apnea. I think that this can be explored as an outpatient if not already done. For now, continue to follow the patient. Continue hospitalization due to patient's continued illness and requirement for IV antibiotics.
[2016-06-20] MEDS: LEVOFLOXACIN / D5W 500 MG in PREMIXED IN D5W 100 ML IV SCH (20:24)
[2016-06-20] MEDS: CALCIUM 600MG + VIT D 400 IU TAB PO SCH (20:28)
[2016-06-20] MEDS: MULTIVITAMIN TAB PO SCH (20:29)
[2016-06-20] MEDS: RANITIDINE HCL 150 MG TAB PO SCH (20:29)
[2016-06-20] MEDS: AMLODIPINE BESYLATE 5 MG TAB PO SCH (20:30)
[2016-06-20] MEDS: CEFTRIAXONE SOD INJ 1 GM in DEXTROSE 5% ADD-VANTAGE 50ML 50 ML IV SCH (22:02)
[2016-06-21] VITALS (9 sets, daily range): BP systolic 125–134; BP diastolic 70–81; PULSE 67–94; TEMP 36.6–36.8; O2SAT 91–97
[2016-06-21] MEDS: METHYLPREDNISOLONE IV 60 MG in SYRINGE 0 ML IV SCH ×2 (01:51→07:53)
[2016-06-21] MEDS: LEVALBUTEROL 1.25MG/0.5ML NEB INH SCH ×4 (02:12→20:23)
[2016-06-21] MEDS: IPRATROPIUM BROMIDE NEB SOLN 0.02% 2.5 ML VIAL INH SCH ×4 (02:12→20:23)
[2016-06-21 06:48] LABS: BASO % 0.1 %; BASO ABS # 0.01 K/uL (0-0.2); COMPLETE YES; HEMATOCRIT 41.6 % (37-47); IG% 0.3 %; LYMPH % 7.9 %; LYMPH ABS # 1.11 K/uL (1.2-3.4); MEAN CELL VOLUME 85.1 fL (80-100); MEAN CORPUSCULAR HEMOGLOBIN 28.6 pg (25-34); MEAN CORPUSCULAR HGB CONC 33.7 g/dl (32-36); MEAN PLATELET VOLUME 9.4 fL (7.4-10.4); MONO % 2.5 %; NEUT % 89.2 %; PLATELET COUNT 273 K/uL (130-400); RED BLOOD COUNT 4.89 M/uL (4.2-5.4); WHITE BLOOD COUNT 14.02 K/uL (4.8-10.8)
[2016-06-21 07:18] LABS: BUN/CREATININE RATIO 24.9 (10-20); CALCIUM 9.2 mg/dl (8.5-10.1); CREATININE 0.84 mg/dl (0.60-1.20); MAGNESIUM 2.4 mg/dl (1.8-2.4); POTASSIUM 3.8 mmol/L (3.5-5.1)
[2016-06-21] MEDS: CYANOCOBALAMIN 500 MCG TAB (VIT B-12) PO SCH (07:53)
[2016-06-21] MEDS: PAROXETINE 20 MG TAB PO SCH (07:53)
[2016-06-21] MEDS: GUAIFENESIN 600 MG TABCR PO SCH ×2 (07:53→20:12)
--- NOTE | 2016-06-21 10:51 | PROGRESS NOTE ---
DATE: 06/21/2016 HOSPITALIST PROGRESS NOTE PROBLEM LIST: Includes: 1. Asthmatic bronchitis. 2. Hypoxia. 3. History of asthma. 4. Hypertension. 5. Depression. 6. Gastroesophageal reflux disease. 7. Vitamin B12 deficiency. SUBJECTIVE: The patient reports that she continues to have improvement with her breathing. She states that she feels that she is about 90% back to normal. She states that she still is having some cough, the cough is still nonproductive. She reports that she did not get the flutter valve that was ordered yesterday. I did contact nursing and they are going to make sure that the flutter valve is obtained from the patient. She states that her breathing is easier. She states that she has not had any noticeable wheezing, but she reports that the staff has noted some wheezing off and on. She states that she has been up walking around and has not gotten that dyspneic with walking around. She denies any chest pain. She denies any chest heaviness. No palpitations. She is not having any difficulty with her swallowing. No reflux symptoms. No indigestion or heartburn. No abdominal pain. She states that her bowels did not move normally yesterday. Her bowels have not yet moved today. She is voiding well. There is no dysuria, no hesitancy or urgency. She is not having any difficulty with swelling in her extremities. No numbness, tingling or weakness in her extremities noted. I did discuss with her if either her PCP or her blade operator had done any evaluation for sleep apnea, she reports that they have not at this time. Her voice is a little bit scratchy today, but she reports that her throat is not sure. Nursing has not reported any difficulties at this time with the patient. OBJECTIVE: GENERAL: The patient is a 55-year-old female, in no acute distress. She is alert and oriented x3. Mood is good. Affect is good. VITAL SIGNS: Temp 36.8, pulse 92, respirations 16, blood pressure is 128/70, pulse ox 94% on room air. HEENT: Normocephalic, atraumatic. Pupils equal, round and reactive to light and accommodation. Extraocular movements are intact. [place] moist gingival and buccal mucosa. There is no erythema or edema in the oropharyngeal area. NECK: Short, supple. No mass. No adenopathy. No bruit. CHEST: Today, I do not really appreciate any wheezing. She has good air movement throughout. No rale or rhonchi noted. CARDIOVASCULAR: Regular rate and rhythm. There are no murmurs, gallops or rubs noted. ABDOMEN: Bowel sounds are present. Abdomen is soft and nontender. No guarding, rigidity or organomegaly. EXTREMITIES: There is no erythema, no edema. NEUROLOGIC: Cranial nerves II-XII are intact. No focal deficits noted. SKIN: No rashes, no abnormality. LABORATORY AND IMAGING DATA: Shows a white count of 14,000, H\T\H of 14.0 and 41.6 and platelet count of 273,000. Sodium 143, potassium 3.8, chloride 105, CO2 is 26, BUN 21, creatinine 0.84. Random glucose 138, calcium 9.2, magnesium 2.4. Blood cultures are negative to date. However, this is a preliminary and the final is not back yet. Urine culture - 3 organisms present with moderate counts, felt to be contamination. No new imaging data. IMPRESSION: 1. A 55-year-old female with a history of asthma who did present with hypoxia with O2 sats in the 70% range from Dr. Estiven Hsieh, her PCP. The patient has responded to treatment well. At this time, her breathing is significantly improved. I would like to start decreasing her steroids in preparation for discharge home. I also recommend continuing her current antibiotic coverage. Continue guaifenesin. Continue nebulization. I did speak with nursing to make sure the patient has a flutter valve present as the patient did not recall using it and I did not see in the room. 2. Leucocytosis. My suspicion is that this is secondary to steroid use. The patient has been afebrile, has not had any difficulty voiding, has not had any diarrhea to indicate Clostridium difficile. Will continue to follow this as well. 3. Hypertension. The patient's blood pressures are doing well. She is to continue her amlodipine. 4. Depression. The patient is to continue with her Paxil. 5. Gastroesophageal reflux disease. She is to continue her ranitidine by mouth. She is asymptomatic currently. 6. Vitamin B12 deficiency. The patient is on 1000 mcg orally daily. MTDD
--- NOTE | 2016-06-21 11:36 | Progress Note ---
Progress Note Date of Service Jun 21, 2016. Progress Note I agree with PA assessment and plan and have seen and examined pt myself Pt reports feeling better VSS Labs reviewed Elev WBC Likely can taper off on steroids Cont antibx at this time Cont mucinex Cont duonebs and O2 Likely DC in next 1-2 days
[2016-06-21] MEDS: METHYLPREDNISOLONE IV 40 MG in SYRINGE 0 ML IV SCH ×2 (16:40→23:20)
[2016-06-21] MEDS: LEVOFLOXACIN / D5W 500 MG in PREMIXED IN D5W 100 ML IV SCH (20:10)
[2016-06-21] MEDS: AMLODIPINE BESYLATE 5 MG TAB PO SCH (20:12)
[2016-06-21] MEDS: MULTIVITAMIN TAB PO SCH (20:12)
[2016-06-21] MEDS: RANITIDINE HCL 150 MG TAB PO SCH (20:12)
[2016-06-21] MEDS: CALCIUM 600MG + VIT D 400 IU TAB PO SCH (20:12)
[2016-06-21] MEDS: CEFTRIAXONE SOD INJ 1 GM in DEXTROSE 5% ADD-VANTAGE 50ML 50 ML IV SCH (21:55)
[2016-06-22] VITALS (10 sets, daily range): BP systolic 143–162; BP diastolic 81–84; PULSE 74–102; TEMP 36.5–36.6; O2SAT 90–95
[2016-06-22] MEDS: LEVALBUTEROL 1.25MG/0.5ML NEB INH SCH ×3 (02:31→14:26)
[2016-06-22] MEDS: IPRATROPIUM BROMIDE NEB SOLN 0.02% 2.5 ML VIAL INH SCH ×3 (02:31→14:26)
[2016-06-22 07:28] LABS: BASO % 0.1 %; BASO ABS # 0.01 K/uL (0-0.2); COMPLETE YES; HEMATOCRIT 41.7 % (37-47); IG% 0.5 %; LYMPH % 6.4 %; LYMPH ABS # 0.97 K/uL (1.2-3.4); MEAN CELL VOLUME 84.4 fL (80-100); MEAN CORPUSCULAR HEMOGLOBIN 27.9 pg (25-34); MEAN CORPUSCULAR HGB CONC 33.1 g/dl (32-36); MEAN PLATELET VOLUME 9.4 fL (7.4-10.4); MONO % 2.7 %; NEUT % 90.3 %; PLATELET COUNT 295 K/uL (130-400); RED BLOOD COUNT 4.94 M/uL (4.2-5.4); WHITE BLOOD COUNT 15.19 K/uL (4.8-10.8)
[2016-06-22] MEDS: METHYLPREDNISOLONE IV 40 MG in SYRINGE 0 ML IV SCH ×2 (08:06→15:28)
[2016-06-22] MEDS: GUAIFENESIN 600 MG TABCR PO SCH (08:06)
[2016-06-22] MEDS: CYANOCOBALAMIN 500 MCG TAB (VIT B-12) PO SCH (08:07)
[2016-06-22] MEDS: PAROXETINE 20 MG TAB PO SCH (08:07)
[2016-06-22 08:14] LABS: BLOOD UREA NITROGEN 25 mg/dl (7-18); BUN/CREATININE RATIO 30.4 (10-20); CARBON DIOXIDE 30 mmol/L (21-32); CHLORIDE 101 mmol/L (98-107); CREATININE 0.81 mg/dl (0.60-1.20); GLUCOSE 119 mg/dl (70-99); SODIUM 139 mmol/L (136-145)
[2016-06-22 09:14] LABS: MAGNESIUM 2.4 mg/dl (1.8-2.4); POTASSIUM 3.5 mmol/L (3.5-5.1)
[2016-06-22] MEDS ORDERED: LEVO500T19 PO (17:42)
[2016-06-22] MEDS ORDERED: VNTHFA/IN INH (17:42)
[2016-06-22] MEDS ORDERED: GFNSR600 PO (17:42)
[2016-06-22] MEDS ORDERED: PRD20 PO (17:42)
--- NOTE | 2016-06-22 17:48 | Discharge Instructions ---
Discharge Instructions Admission Reason for Admission: Acute Bronchitis, Hypoxia Discharge Discharge Diagnosis / Problem: Asthma exacerbation and bronchitis, hypoxia Discharge Goals Goal(s): Improve disease control, Therapeutic intervention Activity Recommendations Activity Limitations: resume your previous activity . Instructions / Follow-Up Instructions / Follow-Up Please finish out your course of prednisone and Levaquin (antibiotic) for your asthma exacerbation and bronchitis. You should follow up with Dr. Hsieh (PCP) and Dr. Hsieh (Pastry Wrapper) within 1-2 weeks. You will need a repeat chest CT in 3 months to ensure your abnormal lung findings from chest CT this admission have cleared up. Incidentally, your chest CT also showed you have a mild enlargement of the great blood vessel called the AORTA coming out of your heart. This is something that should be followed by your PCP with CT scans periodically. You should try to control your blood pressure to keep this from worsening. Current Hospital Diet Patient's current hospital diet: Regular Diet Discharge Diet Recommended Diet: Regular Diet Procedures Procedures Performed: Chest xray Chest CT Pending Studies Studies pending at discharge: no Medical Emergencies . Who to Call and When: Medical Emergencies: If at any time you feel your situation is an emergency, please call 911 immediately. . Non-Emergent Contact Non-Emergency issues call your: Primary Care Provider, Pastry Wrapper Call Non-Emergent contact if: you have a fever, you have any medication questions you are having worsening shortness of breath or chest pain, increased cough or wheezing . . "Provider Documentation" section prepared by Indira Motley. VTE Core Measure Inpt VTE Proph given/why not?: SCD's
--- NOTE | 2016-07-01 21:56 | Discharge Summary ---
Discharge Summary Date of Service Jun 22, 2016. Discharge Summary Admission Date: Jun 19, 2016 at 19:44 Discharge Date: Jun 22, 2016 Discharge Disposition: Home Principal Diagnosis: Acute asthma exacerbation, Acute bronchitis Problems/Secondary Diagnoses: Dilatation of thoracic aorta-mild, 4.2 cm Asthma Acute hypoxemic respiratory failure Leukocytosis Hypertension Depression Gastroesophageal reflux disease Vitamin B12 deficiency Procedures: CHEST ONE VIEW PORTABLE CLINICAL HISTORY: Sepsis HYPOXIA COMPARISON STUDY: May 29, 2015 FINDINGS: The cardiac and mediastinal contours are normal. There is no evidence of focal pulmonary consolidation. There is no evidence of failure. No pleural effusions are visualized.[ IMPRESSION: No active disease in the chest. CT ANGIOGRAPHY OF THE CHEST, PULMONARY EMBOLUS PROTOCOL CLINICAL HISTORY: Hypoxia. Chest congestion. COMPARISON STUDY: Chest radiograph May 29, 2015 and June 19, 2016. TECHNIQUE: Following IV administration of 91 mL of Optiray-320, helical axial images of the chest were obtained utilizing the pulmonary embolus protocol. Maximal intensity projections and sagittal and coronal reformats were viewed on an independent 3D workstation. IV contrast was administered without complication. CT DOSE: 695.84 mGy.cm FINDINGS: No pulmonary emboli are identified. There is mild dilatation of the ascending aorta which measures 4.2 cm at the level the main pulmonary artery. There is no thoracic aortic dissection. The heart is at the upper limits of normal. There are no enlarged thoracic lymph nodes. Central airways are patent with exception of occlusion of several segmental bronchi within the right middle lobe with volume loss. This could reflect mucus or debris. There is no central obstructing mass. There is partial right middle lobe atelectasis. There is mosaic attenuation within the lungs. A few small nodules measure up to 4 mm. These are likely benign. The bony thorax is unremarkable. 2.5 cm lesion within the spleen has increased in size since exam of August 15, 2014 but measures water attenuation and is statistically benign. The gallbladder is surgically absent. IMPRESSION: 1. No pulmonary emboli identified. 2. Mosaic attenuation within the lungs with mild groundglass opacities which favor air trapping. 3. Mild dilatation of the ascending aorta which measures 4.2 cm. No thoracic aortic dissection. 4. Partial right middle lobe atelectasis with suspected mucous within right middle lobe segmental bronchi. No central obstructing mass. A follow-up chest CT in 6 months is recommended. Consultations: None Medication Reconciliation New Medications: Albuterol Hfa (Ventolin Hfa) 200 Puffs/22609 Mcg Aers 2-4 PUFFS INH Q6H, #1 INHALER Prednisone (Prednisone) 20 Mg Tab 60 MG PO DAILY, #13 x 2 days then 40mg daily x 2 days then 20mg daily x 2 days then 10mg daily x 2 days then stop Guaifenesin Ext Rel (Mucinex Ext Rel) 600 Mg Tabcr 600 MG PO Q12 for 14 Days Continued Medications: Amlodipine (Norvasc) 10 Mg Tab 10 MG PO QPM, TAB Biotin (Biotin) 1 Mg Cap 1 MG PO QPM Calcium Carbonate-Cholecalcife (Caltrate 600+D) 1 Tab Tab 1 TAB PO QPM Cyanocobalamin (Vitamin B12) Unknown Strength Tab Unknown Dose PO QPM Fluticasone Prop/Salmeterol (Advair Diskus 250/50 60 Dose) 1 Ea Aerp 1 PUFF INH BID, #60 Multivitamin (Multivitamin) Tab 1 TAB PO QPM, TAB Paroxetine HCl (Paroxetine) 10 Mg Tab 10 MG PO HS Ranitidine (Zantac) 150 Mg Tab 150 MG PO QPM, TAB Vitamins C & E (Vitamin C) 1 Cap Cap 1 CAP PO QPM Referrals At Discharge Follow up Referrals: Physician Referral - Within 1 Week with Estiven Hsieh D.O.Int.Med. Sensory Scientist Referral - Within 2 Weeks with Estiven Hsieh D.O. Pulmonary Discharge Exam ROS: denies any chest pain. She denies any chest heaviness. No palpitations. She is not having any difficulty with her swallowing. No reflux symptoms. No indigestion or heartburn. No abdominal pain. no constipation. She is voiding well. There is no dysuria, no hesitancy or urgency. She is not having any difficulty with swelling in her extremities. No numbness, tingling or weakness in her extremities noted. PHYSICAL EXAM: GENERAL: The patient is a 55-year-old female, in no acute distress. She is alert and oriented x3. Mood is good. Affect is good. VITAL SIGNS: reviewed HEENT: Normocephalic, atraumatic. Extraocular movements are intact. [place] moist gingival and buccal mucosa. There is no erythema or edema in the oropharyngeal area. NECK: Short, supple. No mass. No adenopathy. CHEST: no wheezing. She has good air movement throughout. No rale or rhonchi noted. CARDIOVASCULAR: Regular rate and rhythm. There are no murmurs, gallops or rubs noted. ABDOMEN: Bowel sounds are present. Abdomen is soft and nontender. No guarding, rigidity or organomegaly. EXTREMITIES: There is no erythema, no edema. NEUROLOGIC: No focal deficits noted. SKIN: No rashes, no abnormality. Hospital Course The patient is a 55-year-old female who presents emergency department after being referred from her PCPs office due to low oxygen saturation in the low 70s percent range. She has had some shortness of breath and dyspnea on exertion, and feels lung congestion but is not able to bring up any mucus over the past few days. SHe was admitted for acute hypoxemic respiratory failure, acute bronchitis and acute asthma exacerbation. The patient has responded to treatment well. At this time, her breathing is significantly improved and sh eis stable for discharge to home. She was given IV antibiotics and IV steroids which were then switched to po prednisone in preparation for discharge home. I also recommend continuing her current antibiotic coverage with Levaquin after discharge. Continue guaifenesin. Continue nebulization. Hypertension. The patient's blood pressures are doing well. She is to continue her amlodipine. Depression. The patient is to continue with her Paxil. Gastroesophageal reflux disease. She is to continue her ranitidine by mouth. She is asymptomatic currently. Vitamin B12 deficiency. The patient is on 1000 mcg orally daily. Total Time Spent: Greater than 30 minutes This includes examination of the patient, discharge planning, medication reconciliation, and communication with other providers. Discharge Instructions Please refer to the electronic Patient Visit Report (Discharge Instructions) for additional information. Follow-Up PCP within 1 week Sensory Scientist within 1-2 weeks Will need repeat CT chest in 3-6 months to reassess abnormal findings as well as will need routine follow up on dilated thoracic aortic root. Additional Copies To Estiven Hsieh, Arron.O.Int.Med.; Estiven Hsieh D.O. Pulmonary
== END 2016-06-22 18:05 | disposition home or self-care (01) | DRG 203 ==
LOC: CANRESERV → ENRESERVTM → ENRESERVDT → C.EDB 15:08 → C.2T 19:44 → C.MS2W 06-20 13:52
PROVIDERS: ADMIT Hospitalist; ATTEND Family Medicine
DX: J45.901 Unspecified asthma with (acute) exacerbation (principal); J20.9 Acute bronchitis, unspecified; I10 Essential (primary) hypertension; R09.02 Hypoxemia; F32.9 Major depressive disorder, single episode, unspecified; K21.9 Gastro-esophageal reflux disease without esophagitis; E53.8 Deficiency of other specified B group vitamins; D72.829 Elevated white blood cell count, unspecified; G47.30 Sleep apnea, unspecified; Z79.51 Long term (current) use of inhaled steroids; Z79.899 Other long term (current) drug therapy

== ENCOUNTER 2016-07-03 07:13 | Day surgery (SDC) | payer OTHER ==
[2016-06-12 15:09] VITALS: BMI 47.0
--- NOTE | 2016-06-12 15:26 | PAT Medication Instructions ---
Service Date Jun 12, 2016. Current Home Medication List Albuterol (Proair Hfa), 1-2 PUFFS INH QID PRN for PRN Amlodipine (Norvasc), 10 MG PO QPM Biotin (Biotin), 1 TAB PO QPM Fluticasone Prop/Salmeterol (Advair Diskus 500-50 Mcg/Dose), 1 PUFF INH BID Multivitamin (Multivitamin), 1 TAB PO QPM Paroxetine HCl (Paroxetine), 1 MG PO HS Ranitidine (Zantac), 150 MG PO QPM [Ascorbic Acid], 1 TAB PO QPM [Vitamin B12], 1 TAB PO QPM [Vitamin D], 1 TAB PO QPM Medication Instructions For Your Scheduled Surgery - Take the following medications the morning of surgery with a sip of water: Fluticasone Prop/Salmeterol (Advair Diskus 500-50 Mcg/Dose), 1 PUFF INH BID Albuterol (Proair Hfa), 1-2 PUFFS INH QID PRN for PRN (bring with you to hospital morning of surgery) - Take the following medications as scheduled the night before surgery: [Vitamin B12], 1 TAB PO QPM [Vitamin D], 1 TAB PO QPM [Ascorbic Acid], 1 TAB PO QPM Ranitidine (Zantac), 150 MG PO QPM Multivitamin (Multivitamin), 1 TAB PO QPM Paroxetine HCl (Paroxetine), 1 MG PO HS Fluticasone Prop/Salmeterol (Advair Diskus 500-50 Mcg/Dose), 1 PUFF INH BID Albuterol (Proair Hfa), 1-2 PUFFS INH QID PRN for PRN Amlodipine (Norvasc), 10 MG PO QPM Biotin (Biotin), 1 TAB PO QPM If you have any questions please call us at [phone] (Genet Faria PA-C) or [phone] or [phone]
[2016-06-12 15:52] LABS: HEMATOCRIT 43.3 % (37-47); MEAN CELL VOLUME 86.8 fL (80-100); MEAN CORPUSCULAR HEMOGLOBIN 28.9 pg (25-34); MEAN CORPUSCULAR HGB CONC 33.3 g/dl (32-36); MEAN PLATELET VOLUME 9.7 fL (7.4-10.4); PLATELET COUNT 318 K/uL (130-400); RED BLOOD COUNT 4.99 M/uL (4.2-5.4); WHITE BLOOD COUNT 8.58 K/uL (4.8-10.8)
[~2016-07-03] VITALS: Ht 149.9 cm; Wt 105.8 kg
[~2016-07-03 07:13] MED LIST changes: +ADVIN25/60 INH; -ADVIN50050 INH; -ALBU1AER9 INH; -ASCORBIC ACID PO; +CALC-354 PO; +CYAN100020 PO; +GFNSR600 PO; +LACTATED RINGER'S 1000ML 1,000 ML IV SCH; +PRD20 PO; +VITACAP26 PO; -VITAMIN B12 PO; -VITAMIN D PO; +VNTHFA/IN INH
[2016-07-03] MEDS ORDERED: ADVIN10/60 INH (07:41)
[2016-07-03 07:49] VITALS: BP 116/68; PULSE 67; TEMP 36.5; O2SAT 98; Ht 149.9 cm; Wt 105.8 kg
[2016-07-03] MEDS ORDERED: FENTANYL CITRATE INJ 50 MCG/1 ML 2 ML VIAL ONE (07:54)
[2016-07-03] MEDS ORDERED: DEXAMETHASONE SOD INJ 4 MG/ML VIAL ONE (07:54)
[2016-07-03] MEDS ORDERED: ONDANSETRON INJ 2 MG/ML 2 ML VIAL ONE (07:54)
[2016-07-03] MEDS ORDERED: LIDOCAINE HCL 2% 2 ML VIAL (20MG/ML) ONE (07:54)
[2016-07-03] MEDS ORDERED: PROPOFOL IV EMULSION 10 MG/ML 20 ML VIAL IV ONE (07:54)
[2016-07-03] MEDS ORDERED: MIDAZOLAM HCL 1 MG/ML 2ML VIAL ONE (07:54)
--- NOTE | 2016-07-03 09:33 | History & Physical Bridge Note ---
H&P Re-Evaluation Bridge Note: I have examined the patient, reviewed the History & Physical and in the interval since the performance of the History & Physical I have noted the following changes of clinical significance: No changes noted
[2016-07-03] MEDS ORDERED: EpHEDrine SULFATE 50MG/5ML SYR ONE (09:52)
[2016-07-03] MEDS ORDERED: KETOROLAC TROMETHAMINE 30 MG/ML VIAL ONE (09:52)
[2016-07-03] MEDS ORDERED: SODIUM CHLORIDE 0.9% 1000ML 1,000 ML IV SCH (10:22)
--- NOTE | 2016-07-03 10:24 | [facility] Post Operative Brief Note ---
Immediate Operative Summary Operative Date Jul 03, 2016. Pre-Operative Diagnosis Endometrial Polyp, Post Menopausal Bleeding. Post-Operative Diagnosis Same as preoperative. Procedure(s) Performed Hysteroscopy, Myosure Endometrial Polypectomy Surgeon Dr. Toussaint Mortgage Broker Surgeon(s) None Estimated Blood Loss 10ml Findings Uterus sounded to 8cm. Large fundal endometrial polyp, small anterior polyp. Specimens A. Endometrial polyp, Endometrial [place]. Drains bladder emptied prior to procedure Anesthesia General Complication(s) None Disposition Recovery Room / PACU
[2016-07-03] MEDS ORDERED: PROMETHAZINE HCL INJ 25 MG in SODIUM CHLORIDE 0.9% 50ML 50 ML IV PRN (10:30)
[2016-07-03] MEDS ORDERED: KETOROLAC TROMETHAMINE 30 MG/ML VIAL IV. PRN (10:30)
[2016-07-03] MEDS ORDERED: ONDANSETRON INJ 2 MG/ML 2 ML VIAL IV PRN (10:30)
[2016-07-03] MEDS ORDERED: OXYCODONE/ACETAMINOPHEN 5-325 TAB PO PRN ×2 (10:30)
--- NOTE | 2016-07-03 10:59 | Anesthesiology Progress Note ---
Anesthesia Post Op Note Date & Time Jul 03, 2016 at 10:59 Vital Signs Pain Intensity: 0 Vital Signs Past 12 Hours Date Time Temp Pulse Resp B/P Pulse Ox O2 Delivery O2 Flow Rate FiO2 07/03/16 10:48 80 16 07/03/16 10:48 80 16 94 07/03/16 10:45 134/76 07/03/16 10:43 78 19 07/03/16 10:43 78 19 97 07/03/16 10:40 144/81 07/03/16 10:38 79 17 100 07/03/16 10:38 79 17 07/03/16 10:35 141/79 07/03/16 10:33 81 18 07/03/16 10:33 81 18 100 07/03/16 10:32 82 18 07/03/16 10:32 82 18 100 07/03/16 10:30 147/84 07/03/16 10:27 86 19 100 07/03/16 10:27 87 19 07/03/16 10:25 142/83 07/03/16 10:22 94 15 07/03/16 10:22 94 15 144/86 100 07/03/16 10:22 36.9 94 14 144/80 100 Mask 10 07/03/16 07:49 36.5 67 20 116/68 98 Room Air Notes Mental Status: alert / awake / arousable, participated in evaluation Pt Amnestic to Procedure: Yes Nausea / Vomiting: adequately controlled Pain: adequately controlled Airway Patency, RR, SpO2: stable & adequate BP & HR: stable & adequate Hydration State: stable & adequate Anesthetic Complications: no major complications apparent
[2016-07-03] MEDS ORDERED: EpHEDrine SULFATE INJ 50 MG/ML AMP IV PRN (11:00)
[2016-07-03] MEDS ORDERED: ATROPINE SULFATE 0.1 MG/ML 5ML SYR IV PRN (11:00)
[2016-07-03 11:05] VITALS: BP 129/77; PULSE 72; TEMP 36.6; O2SAT 99
[2016-07-03 11:35] VITALS: BP 128/74; PULSE 72; O2SAT 98
[2016-07-03 12:05] VITALS: BP 132/74; PULSE 73; O2SAT 99
--- NOTE | 2016-07-03 12:10 | OPERATIVE REPORT ---
DATE OF OPERATION: 07/03/2016 PREOPERATIVE DIAGNOSES: 1. Postmenopausal bleeding. 2. Endometrial polyp. POSTOPERATIVE DIAGNOSES: Same. PROCEDURES PERFORMED: Cervical dilation, hysteroscopy and MyoSure endometrial polypectomy. SURGEON: Dr. Toussaint. ESTHETICIAN AND MANAGER MEDICAL SPA: None. ESTIMATED BLOOD LOSS: 10 mL. FINDINGS: Uterus sounded to 8 cm, large fundal endometrial polyp and a small anterior polyp. SPECIMENS: Endometrial polyp and endometrial curettage. DRAINS: Bladder emptied prior to procedure. ANESTHESIA: General. COMPLICATIONS: None. DISPOSITION: Stable and good to recovery room. INDICATIONS FOR PROCEDURE: The patient is a 55-year-old G1, P0 who has noted periodic postmenopausal bleeding. She had an endometrial biopsy in 2014 that was consistent with endometrial polyp. Ultrasound on January 2016 showed an anterior mass fibroid appearing that was bulging into the cavity. Endometrial lining was consistent with a polyp. Saline infusion sonogram was attempted in the office; however, this was unable to be completed due to the patient's anatomy. Her cervix was distant and difficult to reach in the office setting. She elected to undergo a hysteroscopy, D\T\C with MyoSure polypectomy in the operating room. DESCRIPTION OF PROCEDURE: The patient was seen in the preoperative holding area where risks, benefits, alternatives were reviewed. She elected to proceed with surgery. Informed consent had been previously obtained in the office under no duress. All her questions were answered. She was taken to the operating room where general anesthesia was introduced. She was prepared and draped in the usual sterile fashion in the dorsal lithotomy position with feet in candy cane stirrups. A timeout was confirmed. The weighted speculum was placed in the vagina. The cervix was visualized and the anterior lip was grasped with a single tooth tenaculum. The uterus was sounded with the above noted findings and the cervix was gently dilated sequentially to admit the MyoSure hysteroscope. The hysteroscope was inserted and the above noted findings were discovered. Using the MyoSure device, the polypectomy was performed first of the small anterior polyp and then the larger fundal polyp as well as a tissue sample from the endometrial lining. All of this was sent in a specimen container to pathology for further evaluation. Pictures were taken prior to and after the procedure. Bilateral tubal ostia were visualized. All instruments were removed from the vagina and excellent hemostasis was observed. The patient was cleaned of all Betadine prep and awoken from anesthesia and taken to the recovery room in stable and good condition. I attest to the content of the Intraoperative Record and any orders documented therein. Any exceptio ns are noted below.
--- NOTE | 2016-07-03 12:12 | Discharge Instructions ---
Discharge Instructions Date of Service Jul 03, 2016. Visit Reason for Visit: Pmb, Endo Polyp Discharge Discharge Diagnosis / Problem: same Discharge Goals Goal(s): Diagnostic testing, Therapeutic intervention Activity Recommendations Activity Limitations: per Instructions/Follow-up section Anesthesia . Post Anesthesia Instructions: If you have had General Anesthesia or IV Sedation: * Do not drive today. * Resume driving when surgeon permits. * Do not make important decisions or sign legal documents today. * Call surgeon for: 1. Temperature elevations greater than 101 degrees F. 2. Uncontrollable pain. 3. Excessive bleeding. 4. Persistent nausea and vomiting. 5. Medication intolerance (nausea, vomiting or rash). * For nausea and vomiting use only clear liquids such as: tea, soda, bouillon until nausea subsides, then gradually increase diet as tolerated. * If you have any concerns or questions, call your surgeon's office. If physician is unavailable and it is an emergency, call 911 or go to the nearest emergency room. . Instructions / Follow-Up Instructions / Follow-Up ACTIVITY RECOMMENDATIONS: * Avoid tampons, douching, hot tubs, pools, and intercourse until bleeding has stopped. * May shower as usual. * No strenuous activity for 24-48 hours. After 24-48 hours, you may do anything you feel like doing (driving and sports are okay). SPECIAL CARE INSTRUCTIONS: Special Diet: * Mild nausea may occur in the immediate post-operative period. * Take clear liquids such as tea, cola or bouillon until all nausea has subsided; you may then resume your normal diet. Special Care: * Light bleeding and vaginal spotting can last from a few days to 3-4 weeks. Call your doctor if bleeding becomes heavier than the heaviest part of your period. * Check your temperature twice a day for one week. If it goes above 100.4 degrees Fahrenheit (38.0 Celsius), notify your doctor. * Call your doctor's office for an appointment for 6 weeks after your surgery. FOLLOW-UP VISIT: Call your doctor's office for an appointment for 6 weeks after your surgery. Diet Recommendations Recommended Home Diet: resume previous diet Procedures Procedures Performed: Hysteroscopy, Myosure Endometrial Polypectomy Pending Studies Studies pending at discharge: yes List of pending studies: pathology of tissue sample Medical Emergencies . Who to Call and When: Medical Emergencies: If at any time you feel your situation is an emergency, please call 911 immediately. . Non-Emergent Contact Non-Emergency issues call your: Primary Care Provider, Wood Pattern Maker . . "Provider Documentation" section prepared by Cecelia Toussaint.
== END 2016-07-03 12:37 | disposition home or self-care (01) ==
LOC: C.ACU 07:13
PROVIDERS: ATTEND Obstetrics & Gynecology
DX: N95.0 Postmenopausal bleeding (principal); N84.0 Polyp of corpus uteri; J45.909 Unspecified asthma, uncomplicated; F32.9 Major depressive disorder, single episode, unspecified; R31.29 Other microscopic hematuria; E66.9 Obesity, unspecified

== ENCOUNTER → 2016-07-28 | Outpatient (CLI) | payer OTHER ==
[~2016-07-28] MED LIST changes: +ADVIN10/60 INH; -ADVIN25/60 INH; -GFNSR600 PO; -LACTATED RINGER'S 1000ML 1,000 ML IV SCH; -PRD20 PO
--- NOTE | 2016-07-29 17:11 | POLYSOMNOGRAPH REPORT ---
CLINICAL DATA: A 55-year-old female with BMI of [address] Estiven Hsieh and Dr. Estiven Hsieh for evaluation of possible sleep apnea. She does have a history of snoring but no fatigue. She did have nocturnal oxygen desaturation during her recent admission to the hospital for asthmatic bronchitis. On the evening of 07/28/2016, a home sleep apnea test was performed using a [employer] type 3 monitor. RECORDING RESULTS: Total recording time was 9.6 hours. The patient's monitoring time and estimated sleep time was 7 hours. RESPIRATORY DATA: There was no evidence of clinically significant sleep apnea/hypopnea. The MANJULA was 3.3. There were 24 hypopneic episodes. The longest respiratory event was 44 seconds. OXIMETRY DATA: Nocturnal hypoxemia was seen. Oxygen linsey was 73%. Mean saturation was 90%. Time below 89% was 37 minutes. The patient's nocturnal desaturation was limited to a short period during the time frame from 1 a.m. to 1:30 a.m. when she had all of her hypopneic episodes. HEART RATE DATA: Heart rates ranged from 63-74 beats per minute. SNORING DATA: Snoring was recorded throughout the night. IMPRESSION: 1. No evidence of clinically significant sleep apnea/hypopnea. 2. Short episode of nocturnal hypoxemia, most likely occurring during what was probably REM sleep during the timeframe from 1:00 a.m. to 1:30 a.m. Otherwise, O2 saturations were maintained in the normal range. RECOMMENDATIONS: The patient may benefit from weight loss; nocturnal oxygen could be considered. Clinical correlation is needed. [facility]
== END | disposition home or self-care (01) ==
LOC: C.NEUR 08:40
PROVIDERS: ATTEND Internal Medicine Pulmonary Disease
DX: I10 Essential (primary) hypertension (principal); R09.02 Hypoxemia; E66.9 Obesity, unspecified; R06.83 Snoring

== ENCOUNTER → 2016-09-04 | Outpatient (CLI) | payer OTHER ==
--- NOTE | 2016-09-07 14:45 | MAMMOGRAPHY REPORT ---
BILATERAL DIGITAL SCREENING MAMMOGRAM TOMOSYNTHESIS WITH CAD: 09/04/2016 CLINICAL HISTORY: Routine screening. Patient has no complaints. TECHNIQUE: Breast tomosynthesis in addition to standard 2D mammography was performed. Current study was also evaluated with a Computer Aided Detection (CAD) system. COMPARISON: Comparison is made to exams dated: 09/03/2015 mammogram, 08/31/2014 mammogram, 08/28/2014 ma mmogram, 04/02/2011 mammogram, 03/28/2010 mammogram, and 03/25/2009 mammogram - [facility]. BREAST COMPOSITION: There are scattered areas of fibroglandular density in both breasts. FINDINGS: No suspicious masses, calcifications, or areas of architectural distortion are noted in e ither breast. There has been no significant interval change compared to prior exams. Bilateral asym metries and scattered bilateral benign-appearing calcifications are not significantly changed. IMPRESSION: ACR BI-RADS CATEGORY 2: BENIGN There is no mammographic evidence of malignancy. A 1 year screening mammogram is recommended. The p atient will receive written notification of the results. Approximately 10% of breast cancers are not detected with mammography. A negative mammographic repor t should not delay biopsy if a clinically suggestive mass is present. Concepcion Miles M.D. ah/:09/04/2016 16:47:05 Industrial Roofer: Sarah HAYES)(Alejandro)(BD), [facility] letter sent: Normal 1/2 BI-RADS Code: ACR BI-RADS Category 2: Benign
== END | disposition home or self-care (01) ==
LOC: C.MAMM 16:20
PROVIDERS: ATTEND Obstetrics & Gynecology
DX: Z12.31 Encounter for screening mammogram for malignant neoplasm of breast (principal)

== ENCOUNTER → 2016-09-22 | Outpatient (CLI) | payer OTHER ==
[2016-09-22 10:49] LABS: BASO % 0.4 %; BASO ABS # 0.03 K/uL (0-0.2); COMPLETE YES; EOS % 2.5 %; HEMATOCRIT 47.4 % (37-47); IG% 0.1 %; LYMPH % 30.6 %; LYMPH ABS # 2.47 K/uL (1.2-3.4); MEAN CELL VOLUME 88.3 fL (80-100); MEAN CORPUSCULAR HEMOGLOBIN 28.9 pg (25-34); MEAN CORPUSCULAR HGB CONC 32.7 g/dl (32-36); MONO % 5.3 %; NEUT % 61.1 %; PLATELET COUNT 347 K/uL (130-400); RED BLOOD COUNT 5.37 M/uL (4.2-5.4); WHITE BLOOD COUNT 8.08 K/uL (4.8-10.8)
[2016-09-22 14:21] LABS: BLOOD UREA NITROGEN 18 mg/dl (7-18); CARBON DIOXIDE 30 mmol/L (21-32); CHLORIDE 106 mmol/L (98-107); CHOLESTEROL 213 mg/dl (0-200); CREATININE 0.81 mg/dl (0.60-1.20); GLUCOSE 83 mg/dl (70-99); POTASSIUM 3.8 mmol/L (3.5-5.1); SODIUM 143 mmol/L (136-145); TRIGLYCERIDES 99 mg/dl (0-150); VERY LOW DENSITY LIPOPROT CALC 20 mg/dl
[2016-09-22 14:22] LABS: CALCIUM 9.7 mg/dl (8.5-10.1)
[2016-09-22 14:29] LABS: CHOLESTEROL/HDL RATIO 2.9; HDL CHOLESTEROL 74 mg/dl; LDL CHOLESTEROL CALCULATED 119 mg/dl
[2016-09-22 16:23] LABS: LYME DISEASE AB IGG NEG (NEG); LYME DISEASE AB IGM NEG (NEG)
== END | disposition home or self-care (01) ==
LOC: C.LABBC 09:22
PROVIDERS: ATTEND Physician Assistant Medical
DX: Z00.00 Encounter for general adult medical examination without abnormal findings (principal); R53.83 Other fatigue

== ENCOUNTER → 2016-11-02 | Outpatient (CLI) | payer OTHER ==
--- NOTE | 2016-11-02 12:18 | DIAGNOSTIC IMAGING REPORT ---
(CHEST) THORAX WITHOUT HISTORY:56 [id number] Abnormal chest . This is a follow-up exam from study dated 06/19/2016 to assess for atelectasis/possible obstructing process within the right middle lobe. COMPARISON: CTA chest 06/19/2016. TECHNIQUE: Multiple axial CT images of the chest were obtained without IV contrast. FINDINGS: Thyroid appears homogeneous. The pathologic adenopathy of the chest identified. Heart is normal in size without pericardial effusion. Dilation of the descending thoracic aorta just distal to the sinotubular junction is again seen, 4.0 x 4.0 cm. There is no pneumothorax or pleural effusion. Minimal mosaic attenuation is again seen within the upper lobes bilaterally suggesting air trapping. There is minimal subsegmental pleural based linear opacities of the lung bases and anterior aspects of the lingula and right middle lobe suggesting areas of atelectasis and/or pleural-parenchymal scarring. There is resolution of the previously described consolidation of the right middle lobe without obstructing mass or lesion identified. There are a few tree-in-bud nodular opacities within the lateral segment of the right middle lobe. Multiple scattered noncalcified pulmonary nodules are seen. For example, there is is a 4 mm noncalcified pulmonary nodule within the right middle lobe seen on image 33 of series 3. Additional 4 mm noncalcified pulmonary nodule is present within the posterior basal segment left lower lobe. Central airways are patent. Upper abdominal structures are within normal limits. Probable splenule measures 8 mm posterior to the spleen. The bones appear intact. IMPRESSION: 1. Resolution of the previously described partial right middle lobe collapse without obstructing mass or obstructing process identified. Central airways appear patent. 2. Interval development of multiple scattered nodular noncalcified pleural nodules with areas of tree-in-bud nodularity in a multilobar distribution. These findings suggest infectious process with bronchiolitis. Follow-up according to the guidelines below recommended. 3. Unchanged mosaic attenuation of the upper lung zones suggests air trapping. Please refer to below summary of Fleischner criteria recommendations for follow-up of incidental CT nodules (Shelley Sanchez, Guidelines for management of small pulmonary nodules detected on CT scans: A statement from the Fleischner Society, Radiology 237: [id number].) SOLID NODULES Solitary nodule size: <6 mm * Low risk patients: no follow-up needed * high risk patients: optional CT at 12 months Note: newly detected indeterminate nodule in persons 35 years of age or older. * Low risk patients: minimal or absent history of smoking and/or other known risk factors * high risk patients: history of smoking or of other known risk factors (e.g. first degree relative with lung cancer, or exposure to asbestos, radon, uranium) * if a nodule up to 8 mm is partly solid or is ground glass further follow-up is required after 24 months to exclude possible slow growing adenocarcinoma (WAYNE) The above report was generated using voice recognition software. It may contain grammatical, syntax or spelling errors. Electronically signed by: Terry Oconnor 11/02/2016 12:17 PM Dictated Date/Time: 11/02/2016 12:08 PM
== END | disposition home or self-care (01) ==
LOC: C.CTS 10:21
PROVIDERS: ATTEND Physician Assistant Medical
DX: R93.8 Abnormal findings on diagnostic imaging of other specified body structures (principal)

== ENCOUNTER → 2017-05-24 | Outpatient (CLI) | payer OTHER ==
[~2017-05-24] MED LIST changes: -VNTHFA/IN INH
--- NOTE | 2017-05-24 16:45 | DIAGNOSTIC IMAGING REPORT ---
(CHEST) THORAX WITHOUT CLINICAL HISTORY: R93.[address] COMPARISON STUDY: 11/02/2016 CT DOSE: 749.93 mGy.cm TECHNIQUE: CT of the thorax was performed from the thoracic inlet to the lung bases. Images are reviewed in the axial, sagittal, and coronal planes. IV contrast was not administered for this examination. A dose lowering technique was utilized adhering to the principles of ALARA. FINDINGS: Thyroid: Imaged portions of the thyroid gland are normal in appearance. Thoracic aorta: There is mild dilatation of the ascending thoracic aorta which measures 40 mm. Heart: The heart is normal in size and configuration, without pericardial effusion. Lungs and pleural spaces: No pleural effusions are visualized. There is subtle mosaic attenuation the lungs, similar to the preceding examination. There are multifocal subcentimeter bilateral nodular opacities, the largest of which is located within the left lower lobe, measuring 8 mm. There is also a stable right middle lobe opacity, likely representing atelectasis/scar. Mediastinum: There is no mediastinal lymphadenopathy. Mitra: There is no pathologic hilar adenopathy given the limitations of a noncontrast study. Axilla: Clear. Upper abdomen: There is a presumed subcentimeter upper pole left renal cyst. There is a presumed small splenule adjacent to the spleen. The gallbladder surgically absent Skeletal structures: There are no lytic or blastic osseous lesions. IMPRESSION: 1. Stable mosaic attenuation of the lungs, likely secondary to air-trapping 2. Multiple bilateral subcentimeter pulmonary nodules measuring up to 8 mm in diameter. These remain similar to the preceding study. Continued follow-up is advocated. Please refer to below summary of Fleischner criteria recommendations for follow-up of incidental CT nodules (Shelley Sanchez, Guidelines for management of small pulmonary nodules detected on CT scans: A statement from the Fleischner Society, Radiology 237: [phone].) SOLID NODULES Solitary nodule size: <6 mm * low risk patients: no follow-up needed * high risk patients: optional CT at 12 months Solitary nodule size: 6-8 mm * low risk patients: follow-up at 6-12 months, then consider further follow-up at 18-24 months * high risk patients: initial follow-up CT at 6-12 months and then at 18-24 months if no change Solitary nodule size: >8 mm * either low or high risk patients - consider follow-up CT at 3 months, and/or CT-PET, and/or biopsy Multiple nodules size: <6 mm * low risk patients: no routine follow-up * high risk patients: optional CT at 12 months Multiple nodules size: 6-8 mm * low risk patients: follow-up at 3-6 months, then consider further follow-up at 18-24 months * high risk patients: follow-up at 3-6 months, then at 18-24 months if no change Multiple nodules size: >8 mm * low risk patients: follow-up at 3-6 months, then consider further follow-up at 18-24 months * high risk patients: follow-up at 3-6 months, then at 18-24 months if no change Note: newly detected indeterminate nodule in persons 35 years of age or older. * low risk patients: minimal or absent history of smoking and/or other known risk factors * high risk patients: history of smoking or of other known risk factors (e.g. first degree relative with lung cancer, or exposure to asbestos, radon, uranium) * if a nodule up to 8 mm is partly solid or is ground glass further follow-up is required after 24 months to exclude possible slow growing adenocarcinoma ([facility]) SUBSOLID NODULES Solitary pure ground-glass nodule * nodule size <6 mm - no CT follow-up required * nodule size >=6 mm - follow-up CT at 6-12 months, then every 2 years until 5 years Solitary part-solid nodule * nodule size <6 mm - no CT follow-up required * nodule size >=6 mm - follow-up CT at 3-6 months. If unchanged, and solid component remains <6 mm, then annual follow-up for 5 years Multiple subsolid nodules * nodule size <6 mm - follow-up CT at 3-6 months, consider further follow-up at 2 and 4 years if stable * nodule size >=6 mm - follow-up CT at 3-6 months, subsequent management based on the most suspicious nodule(s) Electronically signed by: Pepe More M.D. 05/24/2017 4:44 PM Dictated Date/Time: 05/24/2017 4:35 PM
== END | disposition home or self-care (01) ==
LOC: C.CTS 16:20
PROVIDERS: ATTEND Physician Assistant Medical
DX: R93.8 Abnormal findings on diagnostic imaging of other specified body structures (principal); R91.8 Other nonspecific abnormal finding of lung field

== ENCOUNTER → 2017-09-07 | Outpatient (CLI) | payer OTHER ==
[~2017-09-07] MED LIST changes: +RANI150T85 PO; -ZNTT/150 PO
--- NOTE | 2017-09-08 15:22 | MAMMOGRAPHY REPORT ---
BILATERAL DIGITAL SCREENING MAMMOGRAM TOMOSYNTHESIS WITH CAD: 09/07/2017 CLINICAL HISTORY: Routine screening. Patient has no complaints. TECHNIQUE: Breast tomosynthesis in addition to standard 2D mammography was performed. Current study was also evaluated with a Computer Aided Detection (CAD) system. COMPARISON: Comparison is made to exams dated: 09/04/2016 mammogram, 09/03/2015 mammogram, 08/28/2014 ma mmogram, 04/02/2011 mammogram, 03/28/2010 mammogram, and 08/31/2014 mammogram - [facility]. BREAST COMPOSITION: There are scattered areas of fibroglandular density in both breasts. FINDINGS: There is a possible cluster of microcalcifications in the upper outer middle one third of the left breast, for which additional spot magnification views are recommended. There are diffuse punctate and rim calcifications throughout the right breast. Decreased nodular asy mmetry in the left breast along the posterior nipple line on the cc view most likely represents a flu ctuating cyst. No other suspicious mass, architectural distortion or cluster of microcalcifications i s seen. IMPRESSION: ACR BI-RADS CATEGORY 0: INCOMPLETE EVALUATION: NEED ADDITIONAL IMAGING EVALUATION The possible cluster of microcalcifications in the upper outer left breast needs additional evaluatio n. The patient will be called to schedule an appointment. Approximately 10% of breast cancers are not detected with mammography. A negative mammographic report should not delay biopsy if a clinically suggestive mass is present. Liliya Flynn M.D. ay/:09/07/2017 18:02:29 Ceo And Founder: Mildred PEREZ([place])([place]), [facility] letter sent: Addl Imaging 0 BI-RADS Code: ACR BI-RADS Category 0: Incomplete Evaluation: Need Additional Imaging Evaluation
== END | disposition home or self-care (01) ==
LOC: C.MAMM 15:49
PROVIDERS: ATTEND Obstetrics & Gynecology
DX: Z12.31 Encounter for screening mammogram for malignant neoplasm of breast (principal); R92.0 Mammographic microcalcification found on diagnostic imaging of breast

== ENCOUNTER → 2017-09-16 | Outpatient (CLI) | payer OTHER ==
[2017-09-16 10:46] LABS: ALBUMIN 3.5 gm/dl (3.4-5.0); ALKALINE PHOSPHATASE 144 U/L (45-117); ALT/SGPT 28 U/L (12-78); AST/SGOT 18 U/L (15-37); BLOOD UREA NITROGEN 14 mg/dl (7-18); CALCIUM 9.4 mg/dl (8.5-10.1); CARBON DIOXIDE 30 mmol/L (21-32); CHOLESTEROL 234 mg/dl (0-200); CREATININE 0.76 mg/dl (0.60-1.20); GLUCOSE 78 mg/dl (70-99); LDL CHOLESTEROL CALCULATED 144 mg/dl; POTASSIUM 4.2 mmol/L (3.5-5.1); SODIUM 142 mmol/L (136-145); TOTAL PROTEIN 7.7 gm/dl (6.4-8.2)
== END | disposition home or self-care (01) ==
LOC: C.LAB 07:16
PROVIDERS: ATTEND Physician Assistant Medical
DX: Z00.00 Encounter for general adult medical examination without abnormal findings (principal); I10 Essential (primary) hypertension; K21.9 Gastro-esophageal reflux disease without esophagitis